=== PATIENT | male | born 1960 ===

== ENCOUNTER 2020-07-23 13:29 | Outpatient (CLI) | payer OTHER ==
[~2020-07-23 13:29] MED LIST: TOPROL XL100 M1
== END 2020-07-23 13:39 | disposition home or self-care (01) ==
LOC: RAD 13:29
PROVIDERS: ATTEND Surgery
DX: N18.6 End stage renal disease (principal)

== ENCOUNTER 2021-01-15 08:00 | Outpatient (CLI) | payer OTHER | END 2021-01-15 08:30 | disposition home or self-care (01) | LOC: PPH VACUNA 08:00 | DX: Z23 Encounter for immunization (principal) ==

== ENCOUNTER 2022-05-13 07:42 | Outpatient (CLI) | payer OTHER | END 2022-05-13 07:45 | disposition home or self-care (01) | LOC: NUCLEAR 07:42 | PROVIDERS: ATTEND Internal Medicine Nephrology | DX: I65.29 Occlusion and stenosis of unspecified carotid artery (principal); R09.89 Other specified symptoms and signs involving the circulatory and respiratory systems; N18.6 End stage renal disease ==